=== PATIENT | female | born 1930 | race Caucasian/White ===

== ENCOUNTER 2017-05-11 15:40 | Inpatient (IN) | payer MEDICARE, OTHER ==
[2017-05-11] MEDS: ONDANSETRON PF 4 MG/2 ML VIAL. IV (17:00)
[2017-05-11 17:13] LABS: BILIRUBIN,URINE SMALL (NEG); CLARITY,URINE CLEAR; COLOR,URINE AMBER; GLUCOSE,URINE NEGATIVE (NEG); NITRITE,URINE NEGATIVE (NEG); PROTEIN,URINE 30 mg/dL (NEG-TRACE)
[2017-05-11 17:36] LABS: BACTERIA,URINE FEW /HPF (0-FEW); RBC,URINE 0 /HPF (0-2); SQUAMOUS EPITHELIAL CELL,UR MOD /LPF
[2017-05-11 17:38] LABS: FECAL OB PT NEGATIVE (NEG); NEG OBC FOB NEG; POS OBC FOB POS
[2017-05-11 17:43] LABS: ADD MAN DIFF? NO
[2017-05-11 17:46] LABS: BASO % 0 % (0-3); EOS % 0 % (0-3); HEMATOCRIT 33.2 % (36.0-47.0); HEMOGLOBIN 10.4 g/dL (12.0-15.5); LYMPH % 11 % (24-48); MEAN CORPUSCULAR HEMOGLOBIN 24 pg (25-35); MEAN CORPUSCULAR HGB CONC 31 g/dL (31-37); MEAN CORPUSCULAR VOLUME 78 fL (79-100); MONO # 0.4 x10^3/uL (0.0-1.1); MONO % 5 % (0-9); NEUT # 7.5 x10^3uL (1.8-7.7); NEUT % 83 % (31-73); PLATELET COUNT 490 x10^3/uL (140-400); RED BLOOD COUNT 4.27 x10^6/uL (3.50-5.40); RED CELL DISTRIBUTION WIDTH 15.6 % (11.5-14.5); WHITE BLOOD COUNT 9.1 x10^3/uL (4.0-11.0)
[2017-05-11 17:54] LABS: ANION GAP 7 (6-14); BLOOD UREA NITROGEN 36 mg/dL (7-20); BUN/CREATININE RATIO 45 (6-20); CALCIUM 8.6 mg/dL (8.5-10.1); CARBON DIOXIDE 34 mmol/L (21-32); CHLORIDE 99 mmol/L (98-107); CREATININE 0.8 mg/dL (0.6-1.0); GFR 67.7; GLUCOSE 97 mg/dL (70-99); POTASSIUM 3.5 mmol/L (3.5-5.1); SODIUM 140 mmol/L (136-145)
[2017-05-11 18:00] LABS: ALBUMIN 2.3 g/dL (3.4-5.0); ALBUMIN/GLOBULIN RATIO 0.4 (1.0-1.7); ALK PHOS 101 U/L (46-116); ALT (SGPT) 22 U/L (14-59); AST (SGOT) 34 U/L (15-37); INR 1.1 (0.8-1.1); LIPASE 309 U/L (73-393); PARTIAL THROMBOPLASTIN TIME 37 SEC (24-38); PROTHROMBIN TIME PATIENT 13.5 SEC (11.7-14.0); TOTAL BILIRUBIN 0.4 mg/dL (0.2-1.0); TOTAL PROTEIN 7.7 g/dL (6.4-8.2)
[2017-05-11] MEDS ORDERED: ACETAMINOPHEN 325 MG TABLET. PO (19:15)
[2017-05-11] MEDS ORDERED: ONDANSETRON PF 4 MG/2 ML VIAL. IV ×2 (19:15→19:30)
[2017-05-11] MEDS ORDERED: guaiFENesin DM 200MG/20MG 10 ML SYRUP PO (19:30)
[2017-05-11] MEDS: IPRATRPIUM/ALBUTEROL 0.5/2.5MG 3 ML NEBU. NEB (19:44)
[2017-05-11] MEDS: IV NORMAL SALINE 1000ML BAG 1,000 ML IV (20:03)
[2017-05-11] MEDS: methylPREDNISolone SOD SUCC PF 40 MG/ML VIAL. IV ×2 (20:04→22:58)
[2017-05-11 20:09] LABS: % SAT IRON 5 % (15-34); IRON,SERUM 13 ug/dL (50-170)
[2017-05-11] MEDS ORDERED: NICOTINE 21MG PATCH. TD (20:30)
[2017-05-11] MEDS: guaiFENesin DM 200MG/20MG 10 ML SYRUP PO ×2 (21:00→22:59)
[2017-05-12 05:29] LABS: BASO % 0 % (0-3); EOS % 0 % (0-3); HEMOGLOBIN 9.7 g/dL (12.0-15.5); LYMPH # 0.3 x10^3/uL (1.0-4.8); LYMPH % 6 % (24-48); MEAN CORPUSCULAR HEMOGLOBIN 24 pg (25-35); MEAN CORPUSCULAR HGB CONC 31 g/dL (31-37); MEAN CORPUSCULAR VOLUME 77 fL (79-100); MONO # 0.1 x10^3/uL (0.0-1.1); MONO % 3 % (0-9); NEUT # 4.5 x10^3uL (1.8-7.7); NEUT % 92 % (31-73); PLATELET COUNT 416 x10^3/uL (140-400); RED BLOOD COUNT 4.01 x10^6/uL (3.50-5.40); WHITE BLOOD COUNT 4.9 x10^3/uL (4.0-11.0)
[2017-05-12 05:42] LABS: ANION GAP 4 (6-14); BLOOD UREA NITROGEN 31 mg/dL (7-20); CALCIUM 7.9 mg/dL (8.5-10.1); CARBON DIOXIDE 32 mmol/L (21-32); CHLORIDE 104 mmol/L (98-107); CREATININE 0.7 mg/dL (0.6-1.0); GLUCOSE 145 mg/dL (70-99); SODIUM 140 mmol/L (136-145)
[2017-05-12 05:54] LABS: INFLUENZA A PATIENT NEGATIVE (NEGATIVE); INFLUENZA B PATIENT NEGATIVE (NEGATIVE); OBC FLU VALID
[2017-05-12 06:15] LABS: ADD MAN DIFF? YES
[2017-05-12] MEDS: IPRATRPIUM/ALBUTEROL 0.5/2.5MG 3 ML NEBU. NEB ×4 (07:34→19:18)
[2017-05-12] MEDS: guaiFENesin DM 200MG/20MG 10 ML SYRUP PO ×4 (09:00→20:20)
[2017-05-12] MEDS: CALCIUM CARB/VIT D3 500/200 TABLET. PO (09:00)
[2017-05-12] MEDS: CHOLECALCIFEROL (VITAMIN D3) 1,000 UNIT TABLET PO (09:00)
[2017-05-12] MEDS: methylPREDNISolone SOD SUCC PF 40 MG/ML VIAL. IV ×3 (09:00→20:20)
[2017-05-12 11:29] LABS: % ATYL 1 % (0-0); % LYMPHS 7 % (24-48); % SEGS 92 % (35-66); PLT ESTIMATE INCREASED (ADEQUATE)
[2017-05-12 11:30] LABS: ANISOCYTOSIS SLIGHT; HYPOCHROMIA SLIGHT
[2017-05-12] MEDS: DOXYCYCLINE HYCLATE 100 MG TABLET PO ×2 (14:33→20:20)
[2017-05-12] MEDS: IV NORMAL SALINE 1000ML BAG 1,000 ML IV ×2 (15:51→15:52)
[2017-05-12] MEDS: LACTOBACILLUS RHAMNOSUS GG 1 CAPSULE. PO (20:20)
[2017-05-13 05:44] LABS: ADD MAN DIFF? NO
[2017-05-13 06:04] LABS: BASO % 0 % (0-3); EOS % 0 % (0-3); HEMOGLOBIN 8.4 g/dL (12.0-15.5); LYMPH # 0.5 x10^3/uL (1.0-4.8); LYMPH % 4 % (24-48); MEAN CORPUSCULAR HEMOGLOBIN 24 pg (25-35); MEAN CORPUSCULAR HGB CONC 31 g/dL (31-37); MEAN CORPUSCULAR VOLUME 77 fL (79-100); MONO # 0.3 x10^3/uL (0.0-1.1); MONO % 2 % (0-9); NEUT # 12.5 x10^3uL (1.8-7.7); NEUT % 94 % (31-73); PLATELET COUNT 411 x10^3/uL (140-400); RED BLOOD COUNT 3.52 x10^6/uL (3.50-5.40); RED CELL DISTRIBUTION WIDTH 15.6 % (11.5-14.5); WHITE BLOOD COUNT 13.3 x10^3/uL (4.0-11.0)
[2017-05-13 06:25] LABS: ANION GAP 5 (6-14); BLOOD UREA NITROGEN 21 mg/dL (7-20); CALCIUM 7.7 mg/dL (8.5-10.1); CARBON DIOXIDE 29 mmol/L (21-32); CHLORIDE 104 mmol/L (98-107); CREATININE 0.7 mg/dL (0.6-1.0); GLUCOSE 123 mg/dL (70-99); POTASSIUM 4.1 mmol/L (3.5-5.1); SODIUM 138 mmol/L (136-145)
[2017-05-13] MEDS ORDERED: IPRATRPIUM/ALBUTEROL 0.5/2.5MG 3 ML NEBU. (06:37)
[2017-05-13] MEDS: methylPREDNISolone SOD SUCC PF 40 MG/ML VIAL. IV ×2 (09:00→09:11)
[2017-05-13] MEDS: DOXYCYCLINE HYCLATE 100 MG TABLET PO (09:10)
[2017-05-13] MEDS: CALCIUM CARB/VIT D3 500/200 TABLET. PO (09:10)
[2017-05-13] MEDS: LACTOBACILLUS RHAMNOSUS GG 1 CAPSULE. PO (09:11)
[2017-05-13] MEDS: guaiFENesin DM 200MG/20MG 10 ML SYRUP PO ×2 (09:11→13:00)
[2017-05-13] MEDS: CHOLECALCIFEROL (VITAMIN D3) 1,000 UNIT TABLET PO (09:15)
== END 2017-05-13 13:10 | disposition home or self-care (01) | DRG 865 ==
LOC: ER 15:40 → ED HOLD 18:59 → 5 SOUTH 21:14
DX: B34.9 Viral infection, unspecified (principal); J96.01 Acute respiratory failure with hypoxia; J44.1 Chronic obstructive pulmonary disease with (acute) exacerbation; J40 Bronchitis, not specified as acute or chronic; D50.9 Iron deficiency anemia, unspecified; F17.210 Nicotine dependence, cigarettes, uncomplicated; Z90.710 Acquired absence of both cervix and uterus; Z60.2 Problems related to living alone
CPT/HCPCS: 36415; 71045; 80048; 80053; 81001; 82274; 83540; 83550; 83690; 85007; 85025; 85610; 85730; 86850; 86900; 86901; 87086; 87804; 87804-59; 93005; 93306; 94640; 96374; 97110-GP; 97116-GP; 97162-GP; 97165-GO; 99285; 99285-25; J2920; J7030; J7620